=== PATIENT | male | born 1950 | race Caucasian/White ===

== ENCOUNTER 2018-11-04 19:41 | Observation (INO) | payer OTHER ==
[2018-11-04 23:52] LABS: ADD MAN DIFF? NO
[2018-11-04] MEDS: ONDANSETRON 4 MG INJ IV (23:53)
[2018-11-04] MEDS: morphine 4 MG/ML VIAL IV (23:53)
[2018-11-04 23:55] LABS: BASOPHIL # 0.1 10^3/ul (0.0-0.1); BASOPHILS % 0.9 % (0.0-2.0); EOSINOPHILS # 0.4 10^3/ul (0.0-0.5); EOSINOPHILS % 6.7 % (0.0-7.0); HEMATOCRIT 30.7 % (42.0-52.0); HEMOGLOBIN 10.5 g/dl (14.0-18.0); LYMPHOCYTES # 2.2 10^3/ul (0.8-2.9); LYMPHOCYTES % 34.1 % (15.0-51.0); MEAN CORPUSCULAR HEMOGLOBIN 31.4 pg (29.0-33.0); MEAN CORPUSCULAR HGB CONC 34.2 g/dl (32.0-37.0); MEAN CORPUSCULAR VOLUME 91.9 fl (82.0-101.0); MEAN PLATELET VOLUME 9.8 fl (7.4-10.4); MONOCYTE # 0.4 10^3/ul (0.3-0.9); MONOCYTES % 6.7 % (0.0-11.0); NEUTROPHIL # 3.4 10^3/ul (1.6-7.5); NEUTROPHILS % 51.4 % (39.0-77.0); PLATELET COUNT 221 10^3/UL (140-415); RED BLOOD COUNT 3.34 10^6/ul (4.70-6.10); RED CELL DISTRIBUTION WIDTH 11.8 % (11.5-14.5)
[2018-11-04 23:55] LABS: WHITE BLOOD COUNT 6.5 10^3/ul (4.8-10.8)
[2018-11-05 00:54] LABS: ALANINE AMINOTRANSFERASE 26 IU/L (13-69); ALBUMIN 3.3 g/dl (3.3-4.9); ALBUMIN/GLOBULIN RATIO 1.17; ALKALINE PHOSPHATASE 97 IU/L (42-121); ANION GAP 9 (5-13); ASPARTATE AMINO TRANSFERASE 24 IU/L (15-46); BILIRUBIN,INDIRECT 0.2 mg/dl (0-1.1); BILIRUBIN,TOTAL 0.2 mg/dl (0.2-1.3); BLOOD UREA NITROGEN 25 mg/dl (7-20); CARBON DIOXIDE 23 mmol/L (21-31); CHLORIDE 104 mmol/L (97-110); CREATININE 1.55 mg/dl (0.61-1.24); Estimated GFR 45 mL/min (>60); GLUCOSE 342 mg/dl (70-220); POTASSIUM 5.1 mmol/L (3.5-5.1); SODIUM 136 mmol/L (135-144); TOTAL PROTEIN 6.1 g/dl (6.1-8.1)
[2018-11-05 01:06] LABS: B-TYPE NATRIURETIC PEPTIDE 271 PG/ML (0-125); TROPONIN-I < 0.012 ng/ml (0.000-0.120)
[2018-11-05] MEDS: KETOROLAC 30 MG INJ IV (02:15)
[2018-11-05] MEDS: hydrALAzine 20 MG INJ IV ×2 (05:03→21:35)
[2018-11-05] MEDS ORDERED: ALBUTEROL/IPRATROPIUM (NEB) 3 ML AMP HHN (06:00)
[2018-11-05] MEDS ORDERED: NITROGLYCERIN (SL) 0.4 MG TAB SL (06:00)
[2018-11-05] MEDS ORDERED: ONDANSETRON 4 MG INJ IV (06:00)
[2018-11-05] MEDS ORDERED: NACL 0.9% 3 ML SYG IV (06:00)
[2018-11-05] MEDS ORDERED: ALBUTEROL HFA 8 GM INHALER INH (06:00)
[2018-11-05] MEDS ORDERED: ACETAMINOPHEN 325 MG TAB PO (06:00)
[2018-11-05] MEDS ORDERED: GLUCAGON 1 MG INJ IM (06:30)
[2018-11-05] MEDS ORDERED: GLUCOSE GEL 15 GRAM TUBE PO ×2 (06:30)
[2018-11-05] MEDS ORDERED: GLUCOSE GEL 15 GRAM TUBE BUCCAL (06:30)
[2018-11-05] MEDS ORDERED: DEXTROSE 50% 50 ML SYRINGE IV ×2 (06:30)
[2018-11-05] MEDS: SOD CHLORIDE 0.9% 500 ML IV (06:37)
[2018-11-05 07:53] LABS: ADD MAN DIFF? NO
[2018-11-05 07:56] LABS: BASOPHIL # 0.1 10^3/ul (0.0-0.1); BASOPHILS % 0.7 % (0.0-2.0); EOSINOPHILS # 0.5 10^3/ul (0.0-0.5); HEMATOCRIT 30.5 % (42.0-52.0); HEMOGLOBIN 10.3 g/dl (14.0-18.0); LYMPHOCYTES # 2.4 10^3/ul (0.8-2.9); LYMPHOCYTES % 32.2 % (15.0-51.0); MEAN CORPUSCULAR HEMOGLOBIN 30.8 pg (29.0-33.0); MEAN CORPUSCULAR HGB CONC 33.8 g/dl (32.0-37.0); MEAN CORPUSCULAR VOLUME 91.3 fl (82.0-101.0); MEAN PLATELET VOLUME 9.6 fl (7.4-10.4); MONOCYTE # 0.5 10^3/ul (0.3-0.9); MONOCYTES % 6.2 % (0.0-11.0); NEUTROPHIL # 3.9 10^3/ul (1.6-7.5); NEUTROPHILS % 53.8 % (39.0-77.0); PLATELET COUNT 216 10^3/UL (140-415); RED BLOOD COUNT 3.34 10^6/ul (4.70-6.10); RED CELL DISTRIBUTION WIDTH 11.8 % (11.5-14.5)
[2018-11-05 07:56] LABS: WHITE BLOOD COUNT 7.3 10^3/ul (4.8-10.8)
[2018-11-05 08:06] LABS: HEMOGLOBIN A1C 11.4 % (0-5.9)
[2018-11-05] MEDS ORDERED: HEPARIN 5,000 UNIT/0.5 ML VIAL ×2 (08:12→20:52)
[2018-11-05 08:19] LABS: ALANINE AMINOTRANSFERASE 25 IU/L (13-69); ALBUMIN 2.8 g/dl (3.3-4.9); ALBUMIN/GLOBULIN RATIO 1.03; ALKALINE PHOSPHATASE 94 IU/L (42-121); ANION GAP 7 (5-13); ASPARTATE AMINO TRANSFERASE 21 IU/L (15-46); BILIRUBIN,INDIRECT 0.5 mg/dl (0-1.1); BILIRUBIN,TOTAL 0.5 mg/dl (0.2-1.3); BLOOD UREA NITROGEN 22 mg/dl (7-20); CALCIUM 8.2 mg/dl (8.4-10.2); CARBON DIOXIDE 24 mmol/L (21-31); CHLORIDE 109 mmol/L (97-110); CHOL/HDL RATIO 5.1 RATIO; CHOLESTEROL 149 mg/dl (100-200); CREATINE KINASE 193 IU/L (23-200); CREATININE 1.24 mg/dl (0.61-1.24); Estimated GFR 58 mL/min (>60); GLUCOSE 158 mg/dl (70-220); HDL CHOLESTEROL 29 mg/dl (30-78); LDL CHOLESTEROL,CALCULATED 81 mg/dl; POTASSIUM 4.5 mmol/L (3.5-5.1); SODIUM 140 mmol/L (135-144); TOTAL PROTEIN 5.5 g/dl (6.1-8.1); TRIGLYCERIDES 196 mg/dl (0-149)
[2018-11-05] MEDS: INSULIN ASPART [NOVOLOG] 3 ML PEN SC ×4 (08:20→21:29)
[2018-11-05] MEDS: HEPARIN 5,000 UNIT/1 ML VIAL SC ×2 (08:22→21:30)
[2018-11-05] MEDS: INSULIN GLARGINE [LANTus] (100 UNITS/ML) SYG SC (08:22)
[2018-11-05] MEDS: LANSOPRAZOLE 30 MG CAP PO (08:24)
[2018-11-05] MEDS: FAMOTIDINE 20 MG TAB PO (08:24)
[2018-11-05] MEDS: LORATADINE 10 MG TAB PO (08:25)
[2018-11-05] MEDS: DONEPEZIL 10 MG TAB PO (08:25)
[2018-11-05] MEDS: GABAPENTIN 300 MG CAP PO ×3 (08:25→21:21)
[2018-11-05] MEDS: ASPIRIN 81 MG TAB PO (08:25)
[2018-11-05] MEDS: AMLODIPINE 5 MG TAB PO (08:26)
[2018-11-05] MEDS: ATENOLOL 25 MG TAB PO (08:26)
[2018-11-05 08:28] LABS: CK INDEX 0.8; CK-MB 1.58 ng/ml (0.0-2.4)
[2018-11-05 08:32] LABS: TROPONIN-I < 0.012 ng/ml (0.000-0.120)
[2018-11-05] MEDS: MONTELUKAST 10 MG TAB PO (08:34)
[2018-11-05 12:42] LABS: CREATINE KINASE 273 IU/L (23-200)
[2018-11-05 12:54] LABS: CK INDEX 0.7; TROPONIN-I < 0.012 ng/ml (0.000-0.120)
[2018-11-05] MEDS ORDERED: NON-FORMULARY/PATIENT OWN MED (Simvastatin 40 MG) PO (21:00)
[2018-11-05] MEDS: ATORVASTATIN 20 MG TAB PO (21:21)
[2018-11-06] MEDS: ACCU-CHEK XX (02:41)
[2018-11-06] MEDS: INSULIN ASPART [NOVOLOG] 3 ML PEN SC ×3 (02:51→11:52)
[2018-11-06 06:25] LABS: ADD MAN DIFF? NO
[2018-11-06 06:30] LABS: BASOPHILS % 0.7 % (0.0-2.0); EOSINOPHILS # 0.3 10^3/ul (0.0-0.5); EOSINOPHILS % 5.5 % (0.0-7.0); HEMATOCRIT 29.8 % (42.0-52.0); LYMPHOCYTES # 1.7 10^3/ul (0.8-2.9); LYMPHOCYTES % 29.5 % (15.0-51.0); MEAN CORPUSCULAR HEMOGLOBIN 30.8 pg (29.0-33.0); MEAN CORPUSCULAR HGB CONC 33.6 g/dl (32.0-37.0); MEAN CORPUSCULAR VOLUME 91.7 fl (82.0-101.0); MEAN PLATELET VOLUME 10.1 fl (7.4-10.4); MONOCYTE # 0.4 10^3/ul (0.3-0.9); MONOCYTES % 7.6 % (0.0-11.0); NEUTROPHIL # 3.2 10^3/ul (1.6-7.5); NEUTROPHILS % 56.5 % (39.0-77.0); PLATELET COUNT 211 10^3/UL (140-415); RED BLOOD COUNT 3.25 10^6/ul (4.70-6.10); RED CELL DISTRIBUTION WIDTH 11.7 % (11.5-14.5)
[2018-11-06 06:30] LABS: WHITE BLOOD COUNT 5.6 10^3/ul (4.8-10.8)
[2018-11-06 06:58] LABS: ANION GAP 7 (5-13); BLOOD UREA NITROGEN 24 mg/dl (7-20); CALCIUM 8.2 mg/dl (8.4-10.2); CARBON DIOXIDE 24 mmol/L (21-31); CHLORIDE 106 mmol/L (97-110); CREATININE 1.22 mg/dl (0.61-1.24); Estimated GFR 59 mL/min (>60); GLUCOSE 235 mg/dl (70-220); MAGNESIUM 2.5 mg/dl (1.7-2.5); PHOSPHORUS 4.6 mg/dl (2.5-4.9); POTASSIUM 4.2 mmol/L (3.5-5.1); SODIUM 137 mmol/L (135-144)
[2018-11-06 07:11] LABS: FREE T4 (FREE THYROXINE) 1.15 ng/dl (0.78-2.44)
[2018-11-06] MEDS ORDERED: HEPARIN 5,000 UNIT/0.5 ML VIAL (08:09)
[2018-11-06] MEDS: FAMOTIDINE 20 MG TAB PO (08:13)
[2018-11-06] MEDS: ASPIRIN 81 MG TAB PO (08:14)
[2018-11-06] MEDS: AMLODIPINE 5 MG TAB PO (08:14)
[2018-11-06] MEDS: ATENOLOL 25 MG TAB PO (08:14)
[2018-11-06] MEDS: LORATADINE 10 MG TAB PO (08:14)
[2018-11-06] MEDS: DONEPEZIL 10 MG TAB PO (08:15)
[2018-11-06] MEDS: GABAPENTIN 300 MG CAP PO ×2 (08:15→13:24)
[2018-11-06] MEDS: MONTELUKAST 10 MG TAB PO (08:15)
[2018-11-06] MEDS: LANSOPRAZOLE 30 MG CAP PO (08:15)
[2018-11-06 08:22] LABS: TRIIODOTHYRONINE 1.11 ng/ml (0.97-1.69)
[2018-11-06] MEDS: INSULIN GLARGINE [LANTus] (100 UNITS/ML) SYG SC (08:28)
[2018-11-06] MEDS: HEPARIN 5,000 UNIT/1 ML VIAL SC (08:28)
== END 2018-11-06 17:55 | disposition home or self-care (01) ==
LOC: E/R 19:41 → TEL 11-05 02:00
DX: R07.89 Other chest pain (principal); M79.662 Pain in left lower leg; E10.621 Type 1 diabetes mellitus with foot ulcer; L97.519 Non-pressure chronic ulcer of other part of right foot with unspecified severity; I10 Essential (primary) hypertension; E78.5 Hyperlipidemia, unspecified; D64.9 Anemia, unspecified; E10.9 Type 1 diabetes mellitus without complications; Z79.4 Long term (current) use of insulin
CPT/HCPCS: 36415; 71045; 73590; 73620; 80048; 80053; 80061; 82550; 82553; 82962; 83036; 83735; 83880; 84100; 84439; 84443; 84480; 84484; 85025; 93005; 93306; 93926; 93971; 96374; 96375; 99285-25; G0378

== ENCOUNTER 2019-06-17 02:30 | Inpatient (IN) | payer MEDICARE, OTHER ==
[2019-06-17 03:54] LABS: ADD MAN DIFF? NO
[2019-06-17] MEDS: SODIUM CHLORIDE 0.9% 1L BAG IV* (03:59)
[2019-06-17 04:03] LABS: WHITE BLOOD COUNT 11.9 10^3/ul (4.8-10.8)
[2019-06-17 04:03] LABS: BASOPHILS % 0.3 % (0.0-2.0); EOSINOPHILS % 0.3 % (0.0-7.0); HEMATOCRIT 32.7 % (42.0-52.0); HEMOGLOBIN 10.8 g/dl (14.0-18.0); LYMPHOCYTES # 0.7 10^3/ul (0.8-2.9); LYMPHOCYTES % 5.9 % (15.0-51.0); MEAN CORPUSCULAR HEMOGLOBIN 30.9 pg (29.0-33.0); MEAN CORPUSCULAR VOLUME 93.4 fl (82.0-101.0); MEAN PLATELET VOLUME 10.5 fl (7.4-10.4); MONOCYTE # 0.7 10^3/ul (0.3-0.9); MONOCYTES % 5.5 % (0.0-11.0); NEUTROPHIL # 10.4 10^3/ul (1.6-7.5); NEUTROPHILS % 87.2 % (39.0-77.0); PLATELET COUNT 188 10^3/UL (140-415); RED CELL DISTRIBUTION WIDTH 12.2 % (11.5-14.5)
[2019-06-17 04:18] LABS: ALANINE AMINOTRANSFERASE 11 IU/L (13-69); ALBUMIN 3.5 g/dl (3.3-4.9); ALBUMIN/GLOBULIN RATIO 0.97; ALKALINE PHOSPHATASE 107 IU/L (42-121); ANION GAP 9 (5-13); ASPARTATE AMINO TRANSFERASE 16 IU/L (15-46); BILIRUBIN,INDIRECT 1.1 mg/dl (0-1.1); BILIRUBIN,TOTAL 1.1 mg/dl (0.2-1.3); BLOOD UREA NITROGEN 27 mg/dl (7-20); CALCIUM 8.8 mg/dl (8.4-10.2); CARBON DIOXIDE 21 mmol/L (21-31); CHLORIDE 105 mmol/L (97-110); Estimated GFR 38 mL/min (>60); PARTIAL THROMBOPLASTIN TIME 30.6 Sec (23.0-35.0); POTASSIUM 5.8 mmol/L (3.5-5.1); SODIUM 135 mmol/L (135-144); TOTAL PROTEIN 7.1 g/dl (6.1-8.1)
[2019-06-17 04:19] LABS: GLUCOSE 426 mg/dl (70-220)
[2019-06-17 04:29] LABS: TROPONIN-I < 0.012 ng/ml (0.000-0.120)
[2019-06-17 04:46] LABS: INR 0.91; PROTIME 12.4 Sec (11.9-14.9)
[2019-06-17 06:00] LABS: LACTIC ACID 1.9 mmol/L (0.5-2.0)
[2019-06-17] MEDS ORDERED: ONDANSETRON 4 MG INJ IV ×2 (06:00→13:00)
[2019-06-17 07:51] LABS: ADD UMIC YES; UR ASCORBIC ACID NEGATIVE (NEGATIVE); UR BACTERIA FEW /HPF (NONE SEEN); UR BILIRUBIN (Dip) NEGATIVE (NEGATIVE); UR BLOOD (Dip) 1+ mg/dL (NEGATIVE); UR CLARITY CLEAR (CLEAR); UR COLOR STRAW (YELLOW); UR GLUCOSE (Dip) 3+ mg/dL (NEGATIVE); UR KETONES (Dip) NEGATIVE (NEGATIVE); UR LEUKOCYTE ESTERASE (Dip) NEGATIVE Leu/ul (NEGATIVE); UR NITRITE (Dip) NEGATIVE (NEGATIVE); UR RBC 3 /HPF (0-5); UR SPECIFIC GRAVITY (Dip) 1.014 (1.003-1.030); UR TOTAL PROTEIN (Dip) 3+ mg/dl (NEGATIVE); UR UROBILINOGEN (Dip) NEGATIVE (NEGATIVE); UR WBC 1 /HPF (0-5)
[2019-06-17 08:47] LABS: LACTIC ACID 1.5 mmol/L (0.5-2.0)
[2019-06-17] MEDS ORDERED: ACETAMINOPHEN 160 MG/5ML CUP (09:48)
[2019-06-17] MEDS: ACETAMINOPHEN 325 MG TAB PO (10:00)
[2019-06-17] MEDS ORDERED: GLUCAGON 1 MG INJ IM (13:00)
[2019-06-17] MEDS ORDERED: DEXTROSE 50% 50 ML SYRINGE IV ×2 (13:00)
[2019-06-17] MEDS ORDERED: GLUCOSE GEL 15 GRAM TUBE BUCCAL (13:00)
[2019-06-17] MEDS ORDERED: GLUCOSE GEL 15 GRAM TUBE PO ×2 (13:00)
[2019-06-17] MEDS ORDERED: NACL 0.9% 3 ML SYG IV (13:00)
[2019-06-17] MEDS: INSULIN GLARGINE [LANTus] (100 UNITS/ML) SYG SC (14:56)
[2019-06-17] MEDS ORDERED: hydrALAzine 20 MG INJ IV (15:30)
[2019-06-17] MEDS ORDERED: VANCOMYCIN IV PER PHARMACY XX (15:30)
[2019-06-17] MEDS: INSULIN ASPART [NOVOLOG] 3 ML PEN SC ×3 (17:45→20:46)
[2019-06-17] MEDS: ASPIRIN (EC) 81 MG TAB PO (17:50)
[2019-06-17] MEDS: PIPER-TAZO 3.375 GM IV (PMX) 100 ML IVPB (17:50)
[2019-06-17] MEDS: VANCOMYCIN 1.5 GM/NS 250 ML 250 ML IVPB (20:19)
[2019-06-17] MEDS: ATORVASTATIN 80 MG TAB PO (20:40)
[2019-06-17] MEDS: MONTELUKAST 10 MG TAB PO (20:40)
[2019-06-17] MEDS: HEPARIN 5,000 UNIT/1 ML VIAL SC (20:44)
[2019-06-17] MEDS ORDERED: NON-FORMULARY/PATIENT OWN MED (Simvastatin* (Zocor*) 40 MG) PO (21:00)
[2019-06-17] MEDS ORDERED: NON-FORMULARY/PATIENT OWN MED (Salmeterol Xinaf/Fluticasone* (Advair*) 1 INH) INHALATION (21:00)
[2019-06-17] MEDS: SOD CHLORIDE 0.45% 1,000 ML IV (22:32)
[2019-06-17 22:43] LABS: SODIUM,URINE RANDOM 108 mmol/L (30-90)
[2019-06-17 22:43] LABS: CREATININE,URINE RANDOM 57.81 mg/dl (20-370)
[2019-06-18] MEDS: PIPER-TAZO 3.375 GM IV (PMX) 100 ML IVPB ×4 (00:53→17:14)
[2019-06-18] MEDS: ACCU-CHEK XX (02:00)
[2019-06-18 06:11] LABS: ADD MAN DIFF? NO
[2019-06-18 06:15] LABS: BASOPHILS % 0.4 % (0.0-2.0); EOSINOPHILS # 0.1 10^3/ul (0.0-0.5); EOSINOPHILS % 1.5 % (0.0-7.0); HEMATOCRIT 31.2 % (42.0-52.0); HEMOGLOBIN 10.2 g/dl (14.0-18.0); LYMPHOCYTES # 1.7 10^3/ul (0.8-2.9); LYMPHOCYTES % 22.9 % (15.0-51.0); MEAN CORPUSCULAR HEMOGLOBIN 30.5 pg (29.0-33.0); MEAN CORPUSCULAR HGB CONC 32.7 g/dl (32.0-37.0); MEAN CORPUSCULAR VOLUME 93.4 fl (82.0-101.0); MEAN PLATELET VOLUME 10.3 fl (7.4-10.4); MONOCYTE # 0.5 10^3/ul (0.3-0.9); MONOCYTES % 6.6 % (0.0-11.0); NEUTROPHILS % 68.2 % (39.0-77.0); PLATELET COUNT 184 10^3/UL (140-415); RED BLOOD COUNT 3.34 10^6/ul (4.70-6.10); RED CELL DISTRIBUTION WIDTH 12.3 % (11.5-14.5)
[2019-06-18 06:15] LABS: WHITE BLOOD COUNT 7.4 10^3/ul (4.8-10.8)
[2019-06-18 06:42] LABS: ALANINE AMINOTRANSFERASE 18 IU/L (13-69); ALBUMIN 2.7 g/dl (3.3-4.9); ALBUMIN/GLOBULIN RATIO 0.84; ALKALINE PHOSPHATASE 83 IU/L (42-121); ANION GAP 6 (5-13); ASPARTATE AMINO TRANSFERASE 18 IU/L (15-46); BILIRUBIN,INDIRECT 0.9 mg/dl (0-1.1); BILIRUBIN,TOTAL 0.9 mg/dl (0.2-1.3); BLOOD UREA NITROGEN 16 mg/dl (7-20); CALCIUM 8.5 mg/dl (8.4-10.2); CARBON DIOXIDE 23 mmol/L (21-31); CHLORIDE 111 mmol/L (97-110); CHOL/HDL RATIO 4.5 RATIO; CHOLESTEROL 137 mg/dl (100-200); CREATININE 1.28 mg/dl (0.61-1.24); Estimated GFR 56 mL/min (>60); GLUCOSE 202 mg/dl (70-220); HDL CHOLESTEROL 30 mg/dl (30-78); LDL CHOLESTEROL,CALCULATED 72 mg/dl; MAGNESIUM 1.8 mg/dl (1.7-2.5); PHOSPHORUS 3.2 mg/dl (2.5-4.9); POTASSIUM 4.3 mmol/L (3.5-5.1); SODIUM 140 mmol/L (135-144); TOTAL PROTEIN 5.9 g/dl (6.1-8.1); TRIGLYCERIDES 173 mg/dl (0-149)
[2019-06-18 06:56] LABS: HEMOGLOBIN A1C 11.5 % (0-5.9)
[2019-06-18 07:23] LABS: PARATHYROID HORMONE 65.9 pg/ml (24.0-73.0)
[2019-06-18] MEDS: INSULIN ASPART [NOVOLOG] 3 ML PEN SC ×7 (08:22→20:47)
[2019-06-18] MEDS: VANCOMYCIN 750 MG (PMX) 250 ML IVPB ×2 (08:36→20:33)
[2019-06-18] MEDS: FLUTICASONE/VILANTEROL 100-25 INH (08:38)
[2019-06-18] MEDS: ATENOLOL 25 MG TAB PO (08:38)
[2019-06-18] MEDS: CLOPIDOGREL 75 MG TAB PO (08:38)
[2019-06-18] MEDS: ASPIRIN (EC) 81 MG TAB PO (08:38)
[2019-06-18] MEDS: DONEPEZIL 10 MG TAB PO (08:38)
[2019-06-18] MEDS: PANTOPRAZOLE (EC) 40 MG TAB PO (08:38)
[2019-06-18] MEDS: AMLODIPINE 5 MG TAB PO (08:39)
[2019-06-18] MEDS: HEPARIN 5,000 UNIT/1 ML VIAL SC ×2 (08:47→20:47)
[2019-06-18] MEDS: INSULIN GLARGINE [LANTus] (100 UNITS/ML) SYG SC ×2 (08:48→13:28)
[2019-06-18] MEDS ORDERED: ASPIRIN (EC) 81 MG TAB PO (09:00)
[2019-06-18] MEDS: SOD CHLORIDE 0.45% 1,000 ML IV (17:53)
[2019-06-18] MEDS: ATORVASTATIN 80 MG TAB PO (20:41)
[2019-06-18] MEDS: MONTELUKAST 10 MG TAB PO (20:41)
[2019-06-19] MEDS: ACCU-CHEK XX (02:00)
[2019-06-19] MEDS: PIPER-TAZO 3.375 GM IV (PMX) 100 ML IVPB ×5 (02:17→17:37)
[2019-06-19] MEDS: INSULIN ASPART [NOVOLOG] 3 ML PEN SC ×6 (07:47→20:50)
[2019-06-19] MEDS: ARTIFICIAL TEARS 15 ML OPH BOTH EYES ×2 (07:53→19:44)
[2019-06-19] MEDS: INSULIN GLARGINE [LANTus] (100 UNITS/ML) SYG SC (07:58)
[2019-06-19] MEDS: CLOPIDOGREL 75 MG TAB PO (08:41)
[2019-06-19] MEDS: ASPIRIN (EC) 81 MG TAB PO (08:41)
[2019-06-19] MEDS: PANTOPRAZOLE (EC) 40 MG TAB PO (08:41)
[2019-06-19] MEDS: ATENOLOL 25 MG TAB PO (08:41)
[2019-06-19] MEDS: FLUTICASONE/VILANTEROL 100-25 INH (08:41)
[2019-06-19] MEDS: DONEPEZIL 10 MG TAB PO (08:41)
[2019-06-19] MEDS: AMLODIPINE 5 MG TAB PO (08:42)
[2019-06-19] MEDS: HEPARIN 5,000 UNIT/1 ML VIAL SC ×2 (08:51→20:50)
[2019-06-19 08:52] LABS: CREATININE 1.56 mg/dl (0.61-1.24)
[2019-06-19 08:52] LABS: BLOOD UREA NITROGEN 14 mg/dl (7-20)
[2019-06-19 08:57] LABS: VANCOMYCIN,TROUGH 13.8 ug/ml (10.0-20.0)
[2019-06-19] MEDS: VANCOMYCIN 750 MG (PMX) 250 ML IVPB ×2 (10:30→19:44)
[2019-06-19 12:51] LABS: IRON 36 ug/dl (35-150)
[2019-06-19 13:00] LABS: % IRON SATURATION 15 % SAT (22-52); TOTAL IRON BINDING CAPACITY 236 ug/dl (241-421)
[2019-06-19 13:26] LABS: FERRITIN 52.5 ng/ml (11.1-264.0)
[2019-06-19] MEDS: SOD CHLORIDE 0.45% 1,000 ML IV (14:00)
[2019-06-19 16:31] LABS: WEST NILE VIRUS ANTIBODY (IGG) <1.30 index; WEST NILE VIRUS ANTIBODY (IGM) <0.90 index
[2019-06-19] MEDS: NATEGLINIDE 120 MG TAB PO (17:34)
[2019-06-19] MEDS: MONTELUKAST 10 MG TAB PO (20:13)
[2019-06-19] MEDS: ATORVASTATIN 80 MG TAB PO (20:13)
[2019-06-19] MEDS: ACETAMINOPHEN 325 MG TAB PO (23:55)
[2019-06-20] MEDS: PIPER-TAZO 3.375 GM IV (PMX) 100 ML IVPB ×3 (00:30→12:09)
[2019-06-20] MEDS: ACCU-CHEK XX (01:15)
[2019-06-20] MEDS: SOD CHLORIDE 0.45% 1,000 ML IV (04:51)
[2019-06-20 05:56] LABS: ADD MAN DIFF? NO
[2019-06-20 06:08] LABS: BASOPHILS % 0.5 % (0.0-2.0); EOSINOPHILS # 0.1 10^3/ul (0.0-0.5); EOSINOPHILS % 1.9 % (0.0-7.0); HEMATOCRIT 28.4 % (42.0-52.0); HEMOGLOBIN 9.1 g/dl (14.0-18.0); LYMPHOCYTES # 2.2 10^3/ul (0.8-2.9); LYMPHOCYTES % 37.6 % (15.0-51.0); MEAN CORPUSCULAR HEMOGLOBIN 30.2 pg (29.0-33.0); MEAN CORPUSCULAR VOLUME 94.4 fl (82.0-101.0); MEAN PLATELET VOLUME 10.1 fl (7.4-10.4); MONOCYTE # 0.5 10^3/ul (0.3-0.9); MONOCYTES % 7.6 % (0.0-11.0); NEUTROPHIL # 3.1 10^3/ul (1.6-7.5); NEUTROPHILS % 52.1 % (39.0-77.0); PLATELET COUNT 196 10^3/UL (140-415); RED BLOOD COUNT 3.01 10^6/ul (4.70-6.10); RED CELL DISTRIBUTION WIDTH 12.6 % (11.5-14.5)
[2019-06-20 06:08] LABS: WHITE BLOOD COUNT 5.9 10^3/ul (4.8-10.8)
[2019-06-20 06:36] LABS: PHOSPHORUS 4.9 mg/dl (2.5-4.9)
[2019-06-20 06:36] LABS: MAGNESIUM 1.9 mg/dl (1.7-2.5)
[2019-06-20 06:40] LABS: ALANINE AMINOTRANSFERASE 16 IU/L (13-69); ALBUMIN 2.9 g/dl (3.3-4.9); ALKALINE PHOSPHATASE 75 IU/L (42-121); ANION GAP 10 (5-13); ASPARTATE AMINO TRANSFERASE 18 IU/L (15-46); BILIRUBIN,INDIRECT 0.8 mg/dl (0-1.1); BILIRUBIN,TOTAL 0.8 mg/dl (0.2-1.3); BLOOD UREA NITROGEN 13 mg/dl (7-20); CALCIUM 8.1 mg/dl (8.4-10.2); CARBON DIOXIDE 21 mmol/L (21-31); CHLORIDE 111 mmol/L (97-110); CREATININE 1.74 mg/dl (0.61-1.24); Estimated GFR 39 mL/min (>60); GLUCOSE 100 mg/dl (70-220); POTASSIUM 3.7 mmol/L (3.5-5.1); SODIUM 142 mmol/L (135-144); TOTAL PROTEIN 6.1 g/dl (6.1-8.1)
[2019-06-20] MEDS: INSULIN ASPART [NOVOLOG] 3 ML PEN SC ×2 (07:55→12:21)
[2019-06-20] MEDS: DONEPEZIL 10 MG TAB PO (08:02)
[2019-06-20] MEDS: CLOPIDOGREL 75 MG TAB PO (08:02)
[2019-06-20] MEDS: ASPIRIN (EC) 81 MG TAB PO (08:03)
[2019-06-20] MEDS: FLUTICASONE/VILANTEROL 100-25 INH (08:03)
[2019-06-20] MEDS: PANTOPRAZOLE (EC) 40 MG TAB PO (08:03)
[2019-06-20] MEDS: AMLODIPINE 5 MG TAB PO (08:03)
[2019-06-20] MEDS: NATEGLINIDE 120 MG TAB PO ×2 (08:03→12:09)
[2019-06-20] MEDS: ATENOLOL 25 MG TAB PO (08:05)
[2019-06-20] MEDS: HEPARIN 5,000 UNIT/1 ML VIAL SC (08:11)
[2019-06-20] MEDS: INSULIN GLARGINE [LANTus] (100 UNITS/ML) SYG SC (08:11)
[2019-06-20] MEDS: VANCOMYCIN 750 MG (PMX) 250 ML IVPB (08:15)
[2019-06-20] MEDS: SOD FERRIC GLUC COMPLX 125 MG in SOD CHLORIDE 0.9% 100 ML IVPB (14:27)
[2019-06-20 15:07] LABS: RAPID PLASMA REAGIN NONREACTIVE (NR)
[2019-06-21] MEDS ORDERED: INSULIN GLARGINE [LANTus] (100 UNITS/ML) SYG SC (08:00)
== END 2019-06-20 16:22 | disposition home or self-care (01) | DRG 92 ==
LOC: E/R 02:30 → TEL 05:39
PROVIDERS: Internal Medicine
DX: G92 Toxic encephalopathy (principal); N17.9 Acute kidney failure, unspecified; J06.9 Acute upper respiratory infection, unspecified; E87.5 Hyperkalemia; E11.65 Type 2 diabetes mellitus with hyperglycemia; E78.5 Hyperlipidemia, unspecified; E11.42 Type 2 diabetes mellitus with diabetic polyneuropathy; E11.319 Type 2 diabetes mellitus with unspecified diabetic retinopathy without macular edema; E11.51 Type 2 diabetes mellitus with diabetic peripheral angiopathy without gangrene; E11.22 Type 2 diabetes mellitus with diabetic chronic kidney disease; D63.1 Anemia in chronic kidney disease; I12.9 Hypertensive chronic kidney disease with stage 1 through stage 4 chronic kidney disease, or unspecified chronic kidney disease; N18.3 Chronic kidney disease, stage 3 (moderate); J44.9 Chronic obstructive pulmonary disease, unspecified; K21.9 Gastro-esophageal reflux disease without esophagitis; Z95.828 Presence of other vascular implants and grafts; Z79.4 Long term (current) use of insulin; Z79.82 Long term (current) use of aspirin
CPT/HCPCS: 36415; 70450; 70551; 71045; 76775; 80053; 80061; 80202; 81001; 81003; 82565; 82728; 82962; 83036; 83540; 83605; 83735; 83970; 84100; 84155; 84300; 84484; 84520; 85025; 85610; 85730; 86592; 86756; 86788; 86789; 87040-91; 87045; 87086; 87400; 87880; 89190; 93005; 99285-25